=== PATIENT | male | born 1990 | race African-American/Black ===

== ENCOUNTER 2017-01-24 00:34 | Emergency (ER) | payer SELFPAY ==
[2017-01-24] MEDS ORDERED: LIDOCAINE 1%/EPINEPHRINE INJ 20 ML VIAL INJ ONE (00:41)
[2017-01-24] MEDS ORDERED: DIPH/PERTUSS(ACELL)/TETANUS VAC/PF 0.5 ML SYR (>=10YO) IM ONE (00:48)
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
[2017-01-24 02:05] VITALS: BP 148/117
== END 2017-01-24 02:02 | disposition home or self-care (01) ==
LOC: ER 00:34
PROC: 0HQ5XZZ Repair Chest Skin, External Approach (ICD-10-PCS; principal; 2017-01-24)
DX: S21.111A Laceration without foreign body of right front wall of thorax without penetration into thoracic cavity, initial encounter (principal); X99.1XXA Assault by knife, initial encounter; Y93.89 Activity, other specified; F17.200 Nicotine dependence, unspecified, uncomplicated
CPT/HCPCS: 99284; 90471; 71010; 90715; 12001; J3490

== ENCOUNTER 2017-01-24 03:36 | Emergency (ER) | payer SELFPAY ==
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
[2017-01-24 03:55] VITALS: BP 147/90
== END 2017-01-24 03:55 | disposition home or self-care (01) ==
LOC: ER 03:36
DX: S21.111D Laceration without foreign body of right front wall of thorax without penetration into thoracic cavity, subsequent encounter (principal); W26.9XXD Contact with unspecified sharp object(s), subsequent encounter; F17.200 Nicotine dependence, unspecified, uncomplicated
CPT/HCPCS: 99282

== ENCOUNTER 2017-01-31 11:12 | Emergency (ER) | payer SELFPAY ==
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
[2017-01-31 13:07] VITALS: BP 134/93
== END 2017-01-31 13:11 | disposition home or self-care (01) ==
LOC: ER 11:12
DX: Z48.02 Encounter for removal of sutures (principal); S21.111D Laceration without foreign body of right front wall of thorax without penetration into thoracic cavity, subsequent encounter; W45.8XXD Other foreign body or object entering through skin, subsequent encounter

== ENCOUNTER 2018-06-12 03:44 | Emergency (ER) | payer SELFPAY ==
[2018-06-12] MEDS ORDERED: METOCLOPRAMIDE HCL INJ/PF 10 MG/2 ML SDV IV ONE (04:03)
[2018-06-12] MEDS ORDERED: NORMAL SALINE 1000 ML 1,000 ML IV ONE (04:03)
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
[2018-06-12 04:54] LABS: ABSOLUTE BASOPHILS # (AUTO) 0.1 10^3/uL (0.0-0.2); ABSOLUTE LYMPHOCYTES (AUTO) 0.8 10^3/uL (0.5-4.7); ABSOLUTE MONOCYTES (AUTO) 0.9 10^3/uL (0.1-1.4); ABSOLUTE NEUT (AUTO) 5.7 10^3/uL (1.7-8.2); BASOPHILS % (AUTO) 0.8 % (0-2); EOSINOPHILS % (AUTO) 0.1 % (0-6); HEMATOCRIT 39.7 % (37.9-51.0); HEMOGLOBIN 13.8 g/dL (13.5-17.0); LYMPHOCYTES % (AUTO) 11.1 % (13-45); MEAN CORPUSCULAR HEMOGLOBIN 36.8 pg (27.0-33.4); MEAN CORPUSCULAR HGB CONC 34.8 g/dL (32.0-36.0); MEAN CORPUSCULAR VOLUME 106 fl (80-97); MONOCYTES % (AUTO) 11.9 % (3-13); PLATELET COUNT 285 10^3/uL (150-450); RED BLOOD COUNT 3.75 10^6/uL (4.35-5.55); RED CELL DISTRIBUTION WIDTH 15.6 % (11.5-14.0); SEGMENTED NEUTROPHILS % (AUTO) 76.1 % (42-78); TOTAL CELLS COUNTED % (AUTO) 100 %; WHITE BLOOD COUNT 7.4 10^3/uL (4.0-10.5)
[2018-06-12 05:17] LABS: ANION GAP 15 (5-19); BLOOD UREA NITROGEN 6 mg/dL (7-20); CALCIUM 9.2 mg/dL (8.4-10.2); CARBON DIOXIDE 22 mmol/L (22-30); CHLORIDE 99 mmol/L (98-107); GLUCOSE 134 mg/dL (75-110); POTASSIUM 3.8 mmol/L (3.6-5.0); SODIUM 135.7 mmol/L (137-145)
[2018-06-12 05:18] LABS: ALCOHOL < 10 mg/dL (NONE DETECTED)
[2018-06-12] MEDS ORDERED: MAGNESIUM SULFATE/D5W 1 GM/100 ML RTUPB IV ONE (05:34)
[2018-06-12] MEDS ORDERED: DIPHENHYDRAMINE HCL 50 MG/ML VIAL IV ONE (05:34)
[2018-06-12 06:50] VITALS: BP 169/101
== END 2018-06-12 06:44 | disposition home or self-care (01) ==
LOC: ER 03:44
DX: R56.9 Unspecified convulsions (principal); E83.42 Hypomagnesemia; R51 Headache; R00.0 Tachycardia, unspecified
CPT/HCPCS: 99284; 96361; 96375; 96365; 36415; 80307; 83735; 85025; 80048; J1200; J2765; J3475; J7030

== ENCOUNTER → 2019-12-25 | Outpatient (CLI) | payer MEDICAID | LOC: OD 12:40 | PROVIDERS: ATTEND Family Medicine | DX: R05 Cough (principal) ==

== ENCOUNTER 2020-02-15 04:47 | Emergency (ER) | payer MEDICAID, OTHER ==
[2020-02-15] MEDS ORDERED: NEOMY/BACITRAC ZN/POLY OINT 15 GM TP ONE ×2 (06:45→09:00)
[2020-02-15 07:29] LABS: ABSOLUTE BASOPHILS # (AUTO) 0.1 10^3/uL (0.0-0.2); ABSOLUTE LYMPHOCYTES (AUTO) 1.3 10^3/uL (0.5-4.7); ABSOLUTE MONOCYTES (AUTO) 0.4 10^3/uL (0.1-1.4); ABSOLUTE NEUT (AUTO) 1.3 10^3/uL (1.7-8.2); BASOPHILS % (AUTO) 2.2 % (0-2); EOSINOPHILS % (AUTO) 1.5 % (0-6); HEMATOCRIT 35.4 % (37.9-51.0); HEMOGLOBIN 12.4 g/dL (13.5-17.0); MEAN CORPUSCULAR HEMOGLOBIN 36.6 pg (27.0-33.4); MEAN CORPUSCULAR HGB CONC 34.9 g/dL (32.0-36.0); MEAN CORPUSCULAR VOLUME 105 fl (80-97); MONOCYTES % (AUTO) 11.7 % (3-13); PLATELET COUNT 263 10^3/uL (150-450); RED BLOOD COUNT 3.39 10^6/uL (4.35-5.55); RED CELL DISTRIBUTION WIDTH 15.5 % (11.5-14.0); SEGMENTED NEUTROPHILS % (AUTO) 42.6 % (42-78); TOTAL CELLS COUNTED % (AUTO) 100 %; WHITE BLOOD COUNT 3.2 10^3/uL (4.0-10.5)
[2020-02-15 07:31] LABS: ALBUMIN 4.1 g/dL (3.5-5.0); ALKALINE PHOSPHATASE 89 U/L (38-126); ANION GAP 9 (5-19); ASPARTATE AMINO TRANSFERASE 149 U/L (17-59); BILIRUBIN,DIRECT 0.2 mg/dL (0.0-0.4); BILIRUBIN,TOTAL 0.5 mg/dL (0.2-1.3); BLOOD UREA NITROGEN 8 mg/dL (7-20); CARBON DIOXIDE 25 mmol/L (22-30); CHLORIDE 103 mmol/L (98-107); GLUCOSE 90 mg/dL (75-110); POTASSIUM 4.5 mmol/L (3.6-5.0); TOTAL PROTEIN 7.2 g/dL (6.3-8.2)
[2020-02-15 08:22] VITALS: BP 134/96
--- NOTE | 2020-02-15 08:57 | ER Document Report ---
Entered by WHITNEY KRUGER SCRIBE 02/15/20 0643 Acting as scribe for:ANDREY MEHTA MD ED ENT - General Chief Complaint: Nose Bleed Stated Complaint: NOSE BLEEDING Primary Care Provider: MIKO RAYGOZA MD [Primary Care Provider] - Follow up as needed Mode of Arrival: Ambulatory Information source: Patient Notes: This 29 year old male patient presents to the ED today with complaints of an episode of epistaxis from his right nare that woke him up from his sleep this morning and lasted x1 hour. Patient states that this is the second time that this has happened this week. He reports that after applying pressure for approximately x15 minutes, the bleeding resolved. Denies any trauma, recent illness, headache, sore throat, fever, chills, ear pain, cough, abdominal pain, or known COVID exposure/concern. No blood thinners. TRAVEL OUTSIDE OF THE [place] IN LAST 30 DAYS: No - Related Data Allergies/Adverse Reactions: No Known Allergies Allergy (Verified 06/12/18 06:53) Past Medical History - General Information source: Patient - Social History Smoking Status: Current Every Day Smoker Smoking Education Provided: No Lives with: Spouse/Significant other Family History: Reviewed & Not Pertinent Patient has suicidal ideation: No Patient has homicidal ideation: No Neurological Medical History: Reports: Hx Seizures - last seizure 8 yrs ago; never been on therapy for it - Immunizations Hx Diphtheria, Pertussis, Tetanus Vaccination: Yes - 01/24/17 Review of Systems - Review of Systems Constitutional: See HPI. denies: Chills, Fever, Recent illness EENT: See HPI, Nose discharge - epistaxis. denies: Ear pain, Throat pain Cardiovascular: No symptoms reported Respiratory: See HPI. denies: Cough Gastrointestinal: See HPI. denies: Abdominal pain Genitourinary: No symptoms reported Male Genitourinary: No symptoms reported Musculoskeletal: No symptoms reported Skin: No symptoms reported Hematologic/Lymphatic: No symptoms reported Neurological/Psychological: See HPI. denies: Headaches -: Yes All other systems reviewed and negative Physical Exam - Vital signs Vitals: Temp Pulse Resp BP Pulse Ox 97.7 F 98 16 154/104 H 100 02/15/20 04:55 02/15/20 04:55 02/15/20 04:55 02/15/20 04:55 02/15/20 04:55 Interpretation: Normal - General General appearance: Appears well, Alert In distress: None - HEENT Head: Normocephalic, Atraumatic Eyes: Normal Extraocular movements intact: Yes Pupils: PERRL Ears: Normal Tympanic membrane: Normal. No: Injected Sinus: Normal. No: Tenderness Nasal: Other - Swollen turbinates, right nare. Dried blood appreciated in left nare. No: Epistaxis - No active bleeding Pharynx: Normal. No: Blood in hypopharynx Neck: Normal, Supple - Respiratory Respiratory status: No respiratory distress Chest status: Nontender Breath sounds: Normal Chest palpation: Normal - Cardiovascular Rhythm: Regular Heart sounds: Normal auscultation, S1 appreciated, S2 appreciated Murmur: No Friction rub: No Gallop: None auscultated - Abdominal Inspection: Normal Distension: No distension Bowel sounds: Normal Tenderness: Nontender - Abdomen soft Organomegaly: No organomegaly - Back Back: Normal, Nontender - Extremities General upper extremity: Normal inspection General lower extremity: Normal inspection. No: Edema - Neurological Neuro grossly intact: Yes Orientation: AAOx4 [place] Coma Scale Eye Opening: Spontaneous [place] Coma Scale Verbal: Oriented [place] Coma Scale Motor: Obeys Commands [place] Coma Scale Total: 15 - Psychological Associated symptoms: Normal affect, Normal mood - Skin Skin Temperature: Warm Skin Moisture: Dry Skin Color: Normal Course - Re-evaluation Re-evalutation: 02/15/20 08:46 Patient resting comfortably in exam room not showing any signs of distress there is no active nosebleed at this time. - Vital Signs Vital signs: Temp Pulse Resp BP Pulse Ox 98.4 F 80 14 134/96 H 100 02/15/20 08:17 02/15/20 08:17 02/15/20 08:17 02/15/20 08:17 02/15/20 08:17 02/15/20 08:47 Vital signs shows a blood pressure 134/96. Otherwise vital signs are stable patient does not have a history of hypertension and I explained to patient that he should follow-up with his primary care doctor regarding whether or not diastolic blood pressure remains elevated. - Laboratory Result Diagrams: 02/15/20 06:57 02/15/20 06:57 Laboratory results interpreted by me: 02/15/20 02/15/20 06:57 06:57 WBC 3.2 L RBC 3.39 L Hgb 12.4 L Hct 35.4 L MCV 105 H MCH 36.6 H RDW 15.5 H Baso % (Auto) 2.2 H Absolute Neuts (auto) 1.3 L Sodium 136.7 L AST 149 H ALT 53 H Laboratories show a borderline low white blood cell count of 3.2 and a sodium of 136.7 mild elevation in AST ALT. Discharge - Discharge Clinical Impression: Sinusitis, Mild epistaxis, Elevated blood pressure today Condition: Stable Disposition: HOME, SELF-CARE Additional Instructions: Nosebleed Instructions There is a significant chance of re-bleeding following a nosebleed. Proper care makes this less likely. Do not touch the nose for 24 hours. Do not blow the nose forcefully for one week. After 24 hours, gently apply Vaseline ointment to both nostrils with the tip of a finger, three times a day, for one week. It's normal to have a bloody mucous discharge for a few days. If active bleeding recurs, blow all the blood from the nose, then sit quietly and pinch the nose as firmly as possible for 10 minutes. If this does not stop the bleeding, return for further care. If packing was left in the nose and it starts to come out of the nostril, either tuck it back in or cut it off. Don't pull it out. Return for recheck and removal of the packing when instructed. Persons with frequent nosebleeds should avoid aspirin (unless prescribed for another reason). Humidity in the bedroom, and petroleum jelly applied to the nostrils at night may help. Apply Neosporin ointment to each nostril twice a day. Sinusitis You have sinusitis, an infection of the sinus cavities of the face. The sinuses are air-filled chambers which open into the inside of the nose. Bacteria and pus fill a sinus, causing pain, drainage, and fever. Sinusitis is treated with antibiotics. Often, expectorants (to thin the sinus mucous) or decongestants (to reduce swelling) are prescribed as well. Healing requires seven to 10 days. Avoid chemical fumes, pollens, dusts, and smoke (especially cigarette sm ellie). Keep the air humidified in your bedroom and work area and take plenty of liquids by mouth. This condition can be serious if the infection spreads. If your symptoms worsen, or if you develop severe headache, high fever, stiff neck, or a rash, you must call the doctor or return for re-evaluation. Prescriptions: Amoxicillin 875 mg PO BID #20 tablet Forms: Elevated Blood Pressure, Return to Work Referrals: MIKO RAYGOZA MD [Primary Care Provider] - Follow up as needed I personally performed the services described in the documentation, reviewed and edited the documentation which was dictated to the scribe in my presence, and it accurately records my words and actions.
== END 2020-02-15 09:20 | disposition home or self-care (01) ==
LOC: ER 04:47
DX: J32.9 Chronic sinusitis, unspecified (principal); R04.0 Epistaxis; R03.0 Elevated blood-pressure reading, without diagnosis of hypertension; F17.200 Nicotine dependence, unspecified, uncomplicated
CPT/HCPCS: 99283; 36415; 85025; 80053; J3490

== ENCOUNTER 2020-02-17 09:54 | Emergency (ER) | payer OTHER ==
[2020-02-17] MEDS ORDERED: ONDANSETRON 4 MG TAB.RAPDIS PO ONE (10:38)
[2020-02-17] MEDS ORDERED: OXYMETAZOLINE HCL 0.05% NASAL SPRAY 15 ML BOTTLE NASL ONE (10:39)
--- NOTE | 2020-02-17 10:44 | ER Document Report ---
ED Medical Screen (RME) - General Chief Complaint: Nose Bleed Stated Complaint: NOSE BLEED Time Seen by Provider: 02/17/20 10:18 Primary Care Provider: MIKO RAYGOZA MD [Primary Care Provider] - Follow up as needed TRAVEL OUTSIDE OF THE [place] IN LAST 30 DAYS: No - HPI Notes: 02/17/20 10:42 29 year old male to the ED with C/O nose bleed that began this morning at 8:30 AM and has persisted. States every morning this week, he has had a nosebleed. Most days it stops within 15 minutes, but today he could not get it to stop. Admits to clots. Does not use a blood thinner. Was seen here [facility] for the same, diagnosed with sinusitis and started on Amoxicillin. Did not have any packing, afrin, or TXA. Denies headache. Admits to the blood running down the back of his throat. He is not sure if it makes him nauseated or not. Admits to some nose picking but denies any more frequent nose picking than usual. Denies drug use in particular cocaine use. Patient with active bleeding from both nares with right more than left. Small clots present. Noted blood in oropharynx from draining down the back of his throat. I have performed a brief medical screening on the patient, determined he needs further management by mainside provider. I have placed initial orders to help expedite his care. - Related Data Allergies/Adverse Reactions: No Known Allergies Allergy (Verified 06/12/18 06:53) Past Medical History Neurological Medical History: Reports: Hx Seizures - last seizure 8 yrs ago; never been on therapy for it Renal/ Medical History: Denies: Hx Peritoneal Dialysis - Immunizations Hx Diphtheria, Pertussis, Tetanus Vaccination: Yes - 01/24/17 Physical Exam - Vital signs Vitals: Temp Pulse Resp BP Pulse Ox 98.5 F 95 16 143/96 H 99 02/17/20 10:07 02/17/20 10:07 02/17/20 10:07 02/17/20 10:07 02/17/20 10:07 Course - Vital Signs Vital signs: Temp Pulse Resp BP Pulse Ox 98.5 F 95 16 143/96 H 99 02/17/20 10:07 02/17/20 10:07 02/17/20 10:07 02/17/20 10:07 02/17/20 10:07 Doctor's Discharge - Discharge Referrals: MIKO RAYGOZA MD [Primary Care Provider] - Follow up as needed
[2020-02-17 11:05] LABS: ABSOLUTE MONOCYTES (AUTO) 0.4 10^3/uL (0.1-1.4); ABSOLUTE NEUT (AUTO) 2.2 10^3/uL (1.7-8.2); BASOPHILS % (AUTO) 0.7 % (0-2); EOSINOPHILS % (AUTO) 0.8 % (0-6); HEMATOCRIT 34.7 % (37.9-51.0); MEAN CORPUSCULAR HEMOGLOBIN 36.7 pg (27.0-33.4); MEAN CORPUSCULAR HGB CONC 34.5 g/dL (32.0-36.0); MEAN CORPUSCULAR VOLUME 106 fl (80-97); MONOCYTES % (AUTO) 10.7 % (3-13); PLATELET COUNT 287 10^3/uL (150-450); RED BLOOD COUNT 3.26 10^6/uL (4.35-5.55); RED CELL DISTRIBUTION WIDTH 15.3 % (11.5-14.0); SEGMENTED NEUTROPHILS % (AUTO) 59.8 % (42-78); TOTAL CELLS COUNTED % (AUTO) 100 %; WHITE BLOOD COUNT 3.7 10^3/uL (4.0-10.5)
[2020-02-17 11:12] LABS: PROTHROMBIN TIME 13.4 SEC (11.4-15.4)
[2020-02-17 11:13] LABS: PARTIAL THROMBOPLASTIN TIME 29.9 SEC (23.5-35.8)
[2020-02-17 11:21] LABS: ANION GAP 7 (5-19); BLOOD UREA NITROGEN 10 mg/dL (7-20); CALCIUM 8.9 mg/dL (8.4-10.2); CARBON DIOXIDE 25 mmol/L (22-30); CHLORIDE 105 mmol/L (98-107); GLUCOSE 102 mg/dL (75-110); POTASSIUM 5.2 mmol/L (3.6-5.0)
--- NOTE | 2020-02-17 12:08 | ER Document Report ---
ED ENT - General Chief Complaint: Nose Bleed Stated Complaint: NOSE BLEED Time Seen by Provider: 02/17/20 10:18 Primary Care Provider: MIKO RAYGOZA MD [Primary Care Provider] - Follow up as needed Notes: Patient is a 29-year-old male who presents emergency department with a chief complaint of nosebleed. Patient reports this is day 4 of having nosebleeds that occur in the morning once he awakens. Patient reports he was seen here 2 days ago and diagnosed with sinusitis and was placed on antibiotics. Patient reports he has been taking these antibiotics as prescribed. Patient denies runny nose. Denies use of blood thinners. Denies recent head trauma or nasal trauma. Patient reports he has attempted not to pick his nose. Patient reports last night he did blow his nose which did reveal large clots. Patient states that this typically does not occur throughout the day but the nosebleed does last about 1 hour in the morning. TRAVEL OUTSIDE OF THE [place] IN LAST 30 DAYS: No - Related Data Allergies/Adverse Reactions: No Known Allergies Allergy (Verified 06/12/18 06:53) Past Medical History - General Information source: Patient - Social History Smoking Status: Current Every Day Smoker Frequency of alcohol use: Heavy Drug Abuse: None Lives with: Alone Family History: Reviewed & Not Pertinent - Past Medical History Cardiac Medical History: Reports: None Pulmonary Medical History: Reports: None EENT Medical History: Reports: None Neurological Medical History: Reports: Hx Seizures - last seizure 8 yrs ago; n ever been on therapy for it Endocrine Medical History: Reports: None Renal/ Medical History: Reports: None. Denies: Hx Peritoneal Dialysis Malignancy Medical History: Reports None GI Medical History: Reports: None Musculoskeletal Medical History: Reports None Skin Medical History: Reports None Psychiatric Medical History: Reports: None Traumatic Medical History: Reports: None Infectious Medical History: Reports: None Past Surgical History: Reports: Hx Orthopedic Surgery - left thumb surgery - Immunizations Hx Diphtheria, Pertussis, Tetanus Vaccination: Yes - 01/24/17 Review of Systems - Review of Systems Constitutional: No symptoms reported EENT: See HPI Cardiovascular: No symptoms reported Respiratory: No symptoms reported Gastrointestinal: No symptoms reported Genitourinary: No symptoms reported Male Genitourinary: No symptoms reported Musculoskeletal: No symptoms reported Skin: No symptoms reported Hematologic/Lymphatic: No symptoms reported Neurological/Psychological: No symptoms reported Physical Exam - Vital signs Vitals: Temp Pulse Resp BP Pulse Ox 98.5 F 95 16 143/96 H 99 02/17/20 10:07 02/17/20 10:07 02/17/20 10:07 02/17/20 10:07 02/17/20 10:07 Interpretation: Hypertensive - Notes Notes: GENERAL: Well-appearing, well-nourished and in no acute distress. HEAD: Atraumatic, normocephalic. EYES: Pupils equal round and reactive to light, extraocular movements intact, sclera anicteric, conjunctiva are normal. ENT: Nares patent - dried blood noted in bilateral nare, no notable clots, turbinates erythematous and edematous, oropharynx clear without exudates. Moist mucous membranes. No blood currently draining to back of throat. NECK: Normal range of motion, supple without lymphadenopathy or JVD. LUNGS: Breath sounds clear to auscultation bilaterally and equal. No wheezes rales or rhonchi. HEART: Regular rate and rhythm without murmurs, rubs or gallops. ABDOMEN: Soft, nontender, normoactive bowel sounds. No guarding, no rebound. No masses appreciated. BACK: No cervical, thoracic, lumbar midline tenderness. No saddle anesthesia, normal distal neurovascular exam. GENITOURINARY: Deferred. EXTREMITIES: Normal range of motion, no pitting or edema. No clubbing or cyanosis. NEUROLOGICAL: Cranial nerves II through XII grossly intact. Normal speech, normal gait. PSYCH: Normal mood, normal affect. SKIN: Warm, Dry, normal turgor, no rashes or lesions noted. Course - Re-evaluation Re-evalutation: 02/17/20 12:24 No significant change within the patient's lab work. Potassium was slightly elevated. Patient encouraged to drink plenty of fluids. Patient does not have any active nosebleed. Patient was encouraged to finish an tibiotics to treat the sinusitis. Patient also instructed not to blow his nose, rub his nose vigorously at least for 48 hours. Patient encouraged to use a humidifier at night. Patient also encouraged to use either bacitracin or petroleum jelly to the inner nares. - Vital Signs Vital signs: Temp Pulse Resp BP Pulse Ox 98.3 F 86 16 138/88 H 100 02/17/20 12:23 02/17/20 12:23 02/17/20 12:23 02/17/20 12:23 02/17/20 12:23 - Laboratory Result Diagrams: 02/17/20 10:45 02/17/20 10:45 Laboratory results interpreted by me: 02/17/20 02/17/20 10:45 10:45 WBC 3.7 L RBC 3.26 L Hgb 12.0 L Hct 34.7 L MCV 106 H MCH 36.7 H RDW 15.3 H Sodium 136.8 L Potassium 5.2 H 02/17/20 12:24 Laboratory 02/17/20 02/17/20 02/17/20 10:45 10:45 10:45 WBC 3.7 L RBC 3.26 L Hgb 12.0 L Hct 34.7 L MCV 106 H MCH 36.7 H MCHC 34.5 RDW 15.3 H Plt Count 287 Lymph % (Auto) 28.0 [place] % (Auto) 10.7 Eos % (Auto) 0.8 Baso % (Auto) 0.7 Absolute Neuts (auto) 2.2 Absolute Lymphs (auto) 1.0 Absolute Monos (auto) 0.4 Absolute Eos (auto) 0.0 Absolute Basos (auto) 0.0 Seg Neutrophils % 59.8 PT 13.4 INR 1.00 APTT 29.9 Sodium 136.8 L Potassium 5.2 H Chloride 105 Carbon Dioxide 25 Anion Gap 7 BUN 10 Creatinine 0.78 Est GFR ( Amer) > 60 Est GFR (MDRD) Non-Af > 60 Glucose 102 Calcium 8.9 Discharge - Discharge Clinical Impression: Bleeding nose Sinusitis Qualifiers: Sinusitis location: unspecified location Chronicity: acute Recurrence: not specified as recurrent Qualified Code(s): J01.90 - Acute sinusitis, unspecified Condition: Stable Disposition: HOME, SELF-CARE Additional Instructions: *Today are seen the emergency department for nosebleed. We did obtain blood wor k which did not show significant change from when you were here a few days ago. Please continue to take the oral antibiotics as this is extremely important due to the sinusitis. You can use Vaseline, bacitracin on a Q-tip and applied to the nares bilaterally. If you are able to get a humidifier to place at the bedside this would also help. At night he can use nasal sprays. Do not blow your nose, rub your nose aggressively. Nosebleed Instructions There is a significant chance of re-bleeding following a nosebleed. Proper care makes this less likely. Do not touch the nose for 24 hours. Do not blow the nose forcefully for one week. After 24 hours, gently apply Vaseline ointment to both nostrils with the tip of a finger, three times a day, for one week. It's normal to have a bloody mucous discharge for a few days. If active bleeding recurs, blow all the blood from the nose, then sit quietly and pinch the nose as firmly as possible for 10 minutes. If this does not stop the bleeding, return for further care. If packing was left in the nose and it starts to come out of the nostril, either tuck it back in or cut it off. Don't pull it out. Return for recheck and removal of the packing when instructed. Persons with frequent nosebleeds should avoid aspirin (unless prescribed for another reason). Humidity in the bedroom, and petroleum jelly applied to the nostrils at night may help. Forms: Return to Work Referrals: MIKO RAYGOZA MD [Primary Care Provider] - Follow up as needed
[2020-02-17 12:24] VITALS: BP 138/88
== END 2020-02-17 12:23 | disposition home or self-care (01) ==
LOC: ER 09:54
DX: R04.0 Epistaxis (principal); J01.90 Acute sinusitis, unspecified; F17.200 Nicotine dependence, unspecified, uncomplicated
CPT/HCPCS: 36415; 80048; 85025; 85610; 85730; 99283; J3490